=== PATIENT | female | born 1970 | race Caucasian/White ===

== ENCOUNTER 2023-12-11 09:50 | Day surgery (SDC) | payer OTHER ==
[2023-12-11] MEDS: Lactated Ringers 1,000 ML IV SCH (10:24)
[2023-12-11 10:28] VITALS: RESP 16
[2023-12-11] MEDS ORDERED: DIPRIVAN 200 MG/20 ML IV ONE (12:08)
[2023-12-11 14:18] VITALS: BP 150/87; PULSE 73; TEMP 98.2; O2SAT 97
--- NOTE | 2023-12-20 09:41 | OP ---
SURGERY DATE/TIME: 12/11/2023 [id number] PREOPERATIVE DIAGNOSIS: Screening. POSTOPERATIVE DIAGNOSES: 1) Multiple colon polyps. 2) Diverticulosis. 3) Focal colitis. 4) Anal tags. PROCEDURE: Colonoscopy with hot snare polypectomies, cold snare polypectomies, and cold forceps polypectomies. SURGEON: Mariajose Grayson MD ANESTHESIA: MAC ESTIMATED BLOOD LOSS: Minimal. COMPLICATIONS: None. SPECIMENS: 1) Splenic flexure polyp. 2) Descending colon polyp x2. 3) Sigmoid inflammation, normal sigmoid. 4) Rectal polyp. 5) Distal rectal polyp. INDICATIONS: This is a patient who presents for screening colonoscopy. Risks, benefits, and alternatives have been discussed in detail with the patient. Her H and P and consent have all been completed and confirmed. She would like to proceed. She has done her prep, and all questions have been answered. DESCRIPTION OF PROCEDURE AND FINDINGS: She was then brought back to the endoscopy suite, laid in the left lateral decubitus position. Complete time-out was performed. First, a digital rectal exam was done. She has some very small, benign anal tags that are minimal. Scope was then inserted and gently advanced to the level of the cecum. Cecum was identified by clearly identifying the appendiceal orifice and the ileocecal valve which looks normal. The prep overall was satisfactory. We then carefully withdrew the scope taking a circumferential view of the mucosa. The patient did have multiple have diverticula throughout the left side of the colon. She also had multiple polyps. She had small polyps in the splenic flexure and 2 in the descending colon that were all removed with cold snare and retrieved in entirety for a total of 3 polyps; 1 in the splenic flexure and 2 in the descending colon. All sites hemostatic. She then had an area of a very minor sigmoid inflammation with subtle erythema that was biopsied with cold forceps. This was subtle and focal. I then also biopsied the normal sigmoid colon with cold forceps for comparison under the microscope, and then she did have a larger rectal polyp that was about 1.2 to 1.4 cm taken in entirety with a hot snare, and then she also had a distal rectal polyp which was very small, taken with a cold forceps. All polyps were removed in entirety. All sites hemostatic after removal. Patient tolerated the procedure very well. There were no immediate complications. I had discussed all the results with her family, and we will discuss the final interval and plan after receiving her final pathology reports.
== END 2023-12-11 14:26 | disposition home or self-care (01) ==
LOC: SDC 09:50
PROVIDERS: ATTEND Surgery
DX: Z12.11 Encounter for screening for malignant neoplasm of colon (principal); K57.30 Diverticulosis of large intestine without perforation or abscess without bleeding; K52.89 Other specified noninfective gastroenteritis and colitis; K64.4 Residual hemorrhoidal skin tags; D12.7 Benign neoplasm of rectosigmoid junction; D12.4 Benign neoplasm of descending colon; D12.5 Benign neoplasm of sigmoid colon; D12.3 Benign neoplasm of transverse colon
CPT/HCPCS: J2704